=== PATIENT | male | born 1960 | race Caucasian/White ===

== ENCOUNTER 2021-07-17 11:33 | Emergency (ER) | payer OTHER, SELFPAY ==
[2021-07-17 11:34] VITALS: BP 111/80; PULSE 58; RESP 14; TEMP 36.6; O2SAT 98; BMI 24.9
--- NOTE | 2021-07-17 11:54 | CT_ITS ---
STUDY: CT BRAIN WITHOUT CONTRAST REASON FOR EXAM: Male, 60 years old. headache RADIATION DOSAGE (If Supplied By Facility): CTDIvol = ( 44.99 ) mGy, DLP = ( 796.11 ) mGycm TECHNIQUE: Transaxial CT imaging of the brain was performed without administration of intravenous contrast material. Individualized dose optimization techniques were used for this CT. COMPARISON: No relevant priors. FINDINGS: Normal size ventricles and extra-axial spaces for the patient''s age. Normal white matter tracts of the cerebral hemispheres. Normal basal ganglia and thalami. Normal brainstem. Normal cerebellum. There is no intracranial hemorrhage. There are no findings of an acute ischemic infarction. Normal visualized paranasal sinuses. CT/Brain/Head without Contrast IMPRESSION: Normal unenhanced CT scan of the brain. Electronically Signed: Minerva Kelly MD at 12:21 EDT Tel , Service support ,
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
[2021-07-17 12:48] VITALS: BP 129/86; PULSE 82; RESP 20; O2SAT 97
--- NOTE | 2021-07-17 12:49 | ED.RN ---
THIS NURSE REVIEWED D/C INSTRUCTIONS WITH PT AND . BOTH VERBALIZED UNDERSTANDING OF INSTRUCTIONS. PT DENIES FURTHER NEEDS OR QUESTIONS AT THIS TIME
== END 2021-07-17 12:51 | disposition home or self-care (01) ==
PROVIDERS: Emergency Provider Emergency Medicine
DX: M54.2 Cervicalgia (principal); R51.9 Headache, unspecified
CPT/HCPCS: 70450; 99282